=== PATIENT | male | born 1945 | race Caucasian/White ===

== ENCOUNTER 2023-02-22 05:33 | Outpatient (REF) | payer SELFPAY ==
[2023-02-22 05:35] LABS: MANUAL DIFF FLAG NO
[2023-02-22 05:41] LABS: Basophils Percent Auto 0.7 % (0-2); Eosinophils Absolute Auto 0.3 X10*3/uL (0.0-0.4); Eosinophils Percent Auto 6.3 % (0-4); Hematocrit 27.7 % (42.0-52.0); Imm Gran Abs Auto 0.01 X10*3/uL (0.00-0.03); Imm Gran Pct Auto 0.2 % (0.0-0.4); Lymphocytes Absolute Auto 0.7 X10*3/uL (1.2-4.9); Lymphocytes Percent Auto 17.9 % (20-40); Mean Corpuscular HGB Conc 28.9 g/dl (31.0-36.0); Mean Corpuscular Hemoglobin 20.7 pg (27.0-33.0); Mean Corpuscular Volume 71.8 fL (80.0-98.0); Monocytes Absolute Auto 0.6 X10*3/uL (0.1-1.2); Neutrophils Absolute Auto 2.5 x10*3/uL (2.0-8.3); Neutrophils Percent Auto 60.9 % (45-73); Platelet Count 256 X10*3/uL (160-400); Red Blood Count 3.86 X10*6/uL (4.60-5.80); Red Cell Distribution Width 23.6 % (11.0-16.0); White Blood Count 4.1 X10*3/uL (4.8-10.8)
[2023-02-22 05:56] LABS: Alanine Aminotransferase 10 U/L (0-40); Albumin Level 3.3 g/dL (3.5-5.0); Alkaline Phosphatase 78 U/L (39-117); Anion Gap 12 (12-20); Aspartate Amino Transferase 15 U/L (5-37); Bilirubin Total 0.8 mg/dL (0.0-1.0); Blood Urea Nitrogen 12 mg/dL (9-16); Calcium 9.1 mg/dL (8.4-10.2); Carbon Dioxide 27 mmol/L (22-29); Chloride 101 mmol/L (96-108); Estimated Glomerular Filt Rate > 60; Glucose Random 105 mg/dL (60-115); Potassium 3.6 mmol/L (3.3-5.1); Sodium 136 mmol/L (135-145); Total Protein 5.8 g/dL (6.5-8.0)
== END 2023-02-22 05:34 | disposition home or self-care (01) ==
LOC: HO.MMNH1L 05:33
PROVIDERS: Visit Provider Family Medicine
DX: E11.9 Type 2 diabetes mellitus without complications (principal); I50.9 Heart failure, unspecified
CPT/HCPCS: 36415; 80053; 85025

== ENCOUNTER 2023-02-26 06:12 | Outpatient (REF) | payer SELFPAY ==
[2023-02-26 06:09] LABS: MANUAL DIFF FLAG NO
[2023-02-26 06:55] LABS: Basophils Percent Auto 0.9 % (0-2); Eosinophils Absolute Auto 0.3 X10*3/uL (0.0-0.4); Eosinophils Percent Auto 5.6 % (0-4); Hematocrit 29.9 % (42.0-52.0); Hemoglobin 8.5 g/dl (14.0-18.0); Imm Gran Abs Auto 0.01 X10*3/uL (0.00-0.03); Imm Gran Pct Auto 0.2 % (0.0-0.4); Lymphocytes Absolute Auto 0.8 X10*3/uL (1.2-4.9); Lymphocytes Percent Auto 16.3 % (20-40); Mean Corpuscular HGB Conc 28.4 g/dl (31.0-36.0); Mean Corpuscular Volume 73.8 fL (80.0-98.0); Mean Platelet Volume 9.8 fL (9.4-12.4); Monocytes Absolute Auto 0.7 X10*3/uL (0.1-1.2); Monocytes Percent Auto 15.9 % (2-11); Neutrophils Absolute Auto 2.8 x10*3/uL (2.0-8.3); Neutrophils Percent Auto 61.1 % (45-73); Platelet Count 308 X10*3/uL (160-400); Red Blood Count 4.05 X10*6/uL (4.60-5.80); Red Cell Distribution Width 24.7 % (11.0-16.0); White Blood Count 4.7 X10*3/uL (4.8-10.8)
[2023-02-26 07:19] LABS: Anion Gap 13 (12-20); Blood Urea Nitrogen 8 mg/dL (9-16); Carbon Dioxide 27 mmol/L (22-29); Chloride 102 mmol/L (96-108); Estimated Glomerular Filt Rate > 60; Glucose Random 84 mg/dL (60-115); Potassium 3.2 mmol/L (3.3-5.1); Sodium 139 mmol/L (135-145)
== END 2023-02-26 06:13 | disposition home or self-care (01) ==
LOC: HO.MMNH1L 06:12
PROVIDERS: Visit Provider Family Medicine
DX: E11.9 Type 2 diabetes mellitus without complications (principal); I50.9 Heart failure, unspecified
CPT/HCPCS: 36415; 80048; 85025

== ENCOUNTER 2023-12-09 10:11 | Emergency (ER) | payer MEDICARE, OTHER, SELFPAY ==
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
--- NOTE | 2023-12-09 10:38 | MHC.EDTECH ---
CALLED ME PER EMILIANO AT10:30 SPOKE TO SOFY HASSAN TO EMILIANO @10:39, TOD: 10:28
--- NOTE | 2023-12-09 11:22 | PC.NURSE ---
attempting to contact [place] with info on file, line disconnected. no response on home lines. cellphone voicemail provided alternate numbers with family members. contact info given to hira [employer] for notification of .
--- NOTE | 2023-12-09 11:27 | MHC.EDTECH ---
DR. CUMMINGS SAID, [place] [facility] DECLINED, WEIGHT LOSS PHYSICIAN #[phone]
--- NOTE | 2023-12-09 12:39 | PC.NURSE ---
spoke to colleen at [place] [facility], patient case accepted.
--- NOTE | 2023-12-09 13:15 | PC.NURSE ---
patient transported to [facility] [place]
[2023-12-09 14:49] LABS: Glucose, Whole Blood 232 mg/dL (60-115)
== END 2023-12-09 13:15 | disposition expired ==
PROVIDERS: Emergency Provider Emergency Medicine
DX: I46.9 Cardiac arrest, cause unspecified (principal); R40.4 Transient alteration of awareness
CPT/HCPCS: 82947; 99281; 99285; J0171; J0282; J2310; J3475